=== PATIENT | male | born 1985 | race African-American/Black ===

== ENCOUNTER 2016-12-28 19:22 | Emergency (ER) | payer BC, MEDICAID ==
[~2016-12-28] VITALS: Ht 170.2 cm; Wt 90.0 kg
[~2016-12-28 19:22] MED LIST: NOCURR
[2016-12-28 19:43] VITALS: BP 135/88
[2016-12-28 20:47] LABS: APPEARANCE,URINE CLOUDY (CLEAR); GLUCOSE, URINE (UA) NEGATIVE (NEGATIVE); KETONES,URINE NEGATIVE (NEGATIVE); LEUKOCYTE ESTERASE ,URINE SMALL (NEGATIVE); OCCULT BLOOD,URINE NEGATIVE (NEGATIVE); PROTEIN,URINE NEGATIVE (NEGATIVE)
[2016-12-28 20:49] LABS: ADD UA MICROSCOPIC YES
[2016-12-28 21:00] LABS: SQUAMOUS EPITHELIAL CELL,UR Rare /LPF (None Seen)
[2016-12-28 21:02] LABS: RBC,URINE 0-2 /HPF (0-2)
== END 2016-12-28 22:41 | disposition left against medical advice (07) ==
LOC: EMS 19:23
DX: N50.812 Left testicular pain (principal); Z53.21 Procedure and treatment not carried out due to patient leaving prior to being seen by health care provider
CPT/HCPCS: 87086

== ENCOUNTER 2016-12-28 23:35 | Emergency (ER) | payer BC, MEDICAID ==
[~2016-12-28] VITALS: Ht 172.7 cm; Wt 90.0 kg
[2016-12-29 01:39] LABS: APPEARANCE,URINE CLEAR (CLEAR); GLUCOSE, URINE (UA) NEGATIVE (NEGATIVE); PH,URINE 6.5 (5.0-8.0); PROTEIN,URINE NEGATIVE (NEGATIVE)
[2016-12-29 01:40] LABS: KETONES,URINE NEGATIVE (NEGATIVE); LEUKOCYTE ESTERASE ,URINE TRACE (NEGATIVE); OCCULT BLOOD,URINE NEGATIVE (NEGATIVE)
[2016-12-29 01:41] LABS: RBC,URINE 0-2 /HPF (0-2); SQUAMOUS EPITHELIAL CELL,UR Few /LPF (None Seen)
[2016-12-29] MEDS ORDERED: IBUPROFEN 600 MG TABLET PO ONE (06:15)
[2016-12-29] MEDS ORDERED: LIDOCAINE HCL/PF 1% 2 ML VIAL IM ONE (08:45)
[2016-12-29] MEDS ORDERED: CefTRIAXone SODIUM 1 GM/VIAL IM ONE (08:45)
[2016-12-29] MEDS ORDERED: AZITHROMYCIN 250 MG TABLET PO ONE (08:45)
[2016-12-29 09:34] VITALS: BP 129/76
[2016-12-30 22:36] LABS: GC DNA N.A. AMPLIFY Negative (Negative)
== END 2016-12-29 09:41 | disposition home or self-care (01) ==
LOC: EMS 23:36
DX: N45.1 Epididymitis (principal)
CPT/HCPCS: 76870; 81001; 87086; 87491; 87591; 96372; 99285; J0696; J3490

== ENCOUNTER 2017-01-10 02:36 | Emergency (ER) | payer MEDICAID ==
[~2017-01-10] VITALS: Ht 170.2 cm; Wt 90.9 kg
[2017-01-10] MEDS ORDERED: IBUP-2070 PO (02:46)
[2017-01-10] MEDS ORDERED: LEVOFLOXACIN 500 MG TABLET PO ONE (03:15)
[2017-01-10 03:33] LABS: APPEARANCE,URINE CLEAR (CLEAR); GLUCOSE, URINE (UA) NEGATIVE (NEGATIVE); KETONES,URINE NEGATIVE (NEGATIVE); LEUKOCYTE ESTERASE ,URINE NEGATIVE (NEGATIVE); OCCULT BLOOD,URINE NEGATIVE (NEGATIVE); PH,URINE 5.5 (5.0-8.0); PROTEIN,URINE NEGATIVE (NEGATIVE)
[2017-01-10 03:36] LABS: ADD UA MICROSCOPIC NO
[2017-01-10 03:54] VITALS: BP 135/76
== END 2017-01-10 04:03 | disposition home or self-care (01) ==
LOC: EMS 02:37
DX: N45.1 Epididymitis (principal)
CPT/HCPCS: 99283